=== PATIENT | male | born 1990 | race Two or more races ===

== ENCOUNTER 2019-06-21 07:30 | Emergency (ER) | payer SELFPAY ==
[~2019-06-21] VITALS: Ht 167.6 cm; Wt 64.0 kg
[2019-06-21 08:15] VITALS: BP 121/80
[2019-06-21] MEDS ORDERED: TETANUS, DIPHTHERIA, PERTUSSIS VAC/PF 0.5ML (>7YR OLD) IM ONE (08:15)
== END 2019-06-21 08:30 | disposition home or self-care (01) ==
LOC: ER 07:44
DX: T18.2XXA Foreign body in stomach, initial encounter (principal); F19.10 Other psychoactive substance abuse, uncomplicated; X58.XXXA Exposure to other specified factors, initial encounter; Y93.89 Activity, other specified; Y92.89 Other specified places as the place of occurrence of the external cause; Y99.8 Other external cause status
CPT/HCPCS: 99284